=== PATIENT | male | born 1980 | race Caucasian/White ===

== ENCOUNTER 2021-08-16 05:25 | Emergency (ER) | payer BC, OTHER ==
[~2021-08-16] VITALS: Ht 182.9 cm; Wt 95.6 kg
[2021-08-16 08:06] LABS: BASO % 0.2 % (0.0-1.0); EOS % 0.1 % (0.0-3.0); HEMATOCRIT 47.7 % (42.0-52.0); HEMOGLOBIN 16.5 g/dl (13.5-17.5); LYMPH % 5.7 % (24.0-44.0); MEAN CORPUSCULAR HEMOGLOBIN 34.8 pg (27.0-33.0); MEAN CORPUSCULAR HGB CONC 34.6 g/dl (32.0-36.5); MEAN CORPUSCULAR VOLUME 100.6 fl (80.0-96.0); MONO % 9.3 % (2.0-8.0); NEUTROPHILS % 81.9 % (36.0-66.0); PLATELET COUNT, AUTOMATED 176 10^3/uL (150-450); RED BLOOD COUNT 4.74 10^6/uL (4.30-6.10)
[2021-08-16 08:08] LABS: AMORPHOUS SEDIMENT SMALL (NEGATIVE); APPEARANCE, URINE CLOUDY (CLEAR); BACTERIA, URINE AUTO NEGATIVE (NEGATIVE); BILIRUBIN, URINE AUTO NEGATIVE (NEGATIVE); BLOOD, URINE BLOOD NEGATIVE (NEGATIVE); COLOR, URINE YELLOW (YELLOW); GLUCOSE, URINE (UA) AUTO NEGATIVE (NEGATIVE); KETONE, URINE AUTO TRACE mg/dL (NEGATIVE); LEUKOCYTE ESTERASE, URINE AUTO NEGATIVE (NEGATIVE); MUCUS, URINE SMALL (NEGATIVE); NITRITE, URINE AUTO NEGATIVE (NEGATIVE); PROTEIN, URINE AUTO NEGATIVE (NEGATIVE); RBC, URINE AUTO 0 /HPF (0-3); SPECIFIC GRAVITY URINE AUTO 1.019 (1.002-1.035); SQUAMOUS EPITHELIAL CELL UR AU 0 /HPF (0-6); WBC, URINE AUTO 3 /HPF (0-3)
[2021-08-16 08:29] LABS: ALBUMIN 3.7 GM/DL (3.2-5.2); ALT/SGPT 55 U/L (12-78); BILIRUBIN,DIRECT 0.4 MG/DL (0.0-0.2); BILIRUBIN,TOTAL 1.9 MG/DL (0.2-1.0); BLOOD UREA NITROGEN 11 MG/DL (7-18); CALCIUM LEVEL 9.2 MG/DL (8.5-10.1); CARBON DIOXIDE LEVEL 29 MEQ/L (21-32); CHLORIDE LEVEL 111 MEQ/L (98-107); CREATININE FOR GFR 1.04 MG/DL (0.70-1.30); GLOMERULAR FILTRATION RATE > 60.0 (>60); GLUCOSE, FASTING 103 MG/DL (70-100); NT-PRO BNP 126 PG/ML (<125); POTASSIUM SERUM 3.9 MEQ/L (3.5-5.1); SODIUM LEVEL 146 MEQ/L (136-145); TOTAL PROTEIN 6.5 GM/DL (6.4-8.2)
[2021-08-16 08:40] LABS: MONO # 1.6 10^3/uL (0.0-0.8)
[2021-08-16] MEDS ORDERED: ISOVUE-370 76% 100ML VIAL As Ordered ONE (09:19)
[2021-08-16 11:01] VITALS: BP 162/80
[2021-08-28] MEDS ORDERED: LOSA50TA28 PO (18:00)
[2021-10-20] MEDS ORDERED: HYDR-4571 PO ×2 (09:58→16:11)
[2021-11-06] MEDS ORDERED: HYDR-3713 PO (15:08)
== END 2021-08-16 11:19 | disposition home or self-care (01) ==
LOC: M ED 05:25
DX: R22.43 Localized swelling, mass and lump, lower limb, bilateral (principal); D72.829 Elevated white blood cell count, unspecified
CPT/HCPCS: 71046; 74177; 80048; 80076; 81001; 83880; 85025; 99283; Q9967

== ENCOUNTER → 2021-08-23 | Outpatient (CLI) | payer BC ==
[~2021-08-23] MED LIST: AMLO1TAB25 PO; AMLODIPI PO; AZIT500T5 PO; CEFD300C41 PO; CETI10CH PO; CHLO125TA PO; DAPS10TA PO; DICL1GEL3 TOP; DILT1CAP46 PO; DOXY-443 PO; ELIQ5TAB PO; EPIP0.3I2 IM; FAMO20TA PO; HYDR-3713 PO; HYDR-3910 PO; HYDR-4571 PO; HYDR50TA70 PO; JANU100T14 PO; LEVO750T13 PO; LOSA50TA28 PO; METF10004 PO; METF500T13 PO; METO1TAB33 PO; MIRA1POW3 PO; NORV5TAB PO; PANT40TA29 PO; POTA10CA32 PO; POTA10TA67 PO; PRED20TA PO; RA M10TA PO; SPIR-10 PO; TRIA1CR80 TOP; TRUL10IN SC
[2021-08-23 10:59] LABS: APPEARANCE, URINE CLEAR (CLEAR); BACTERIA, URINE AUTO NEGATIVE (NEGATIVE); BILIRUBIN, URINE AUTO NEGATIVE (NEGATIVE); BLOOD, URINE BLOOD NEGATIVE (NEGATIVE); COLOR, URINE YELLOW (YELLOW); GLUCOSE, URINE (UA) AUTO NEGATIVE (NEGATIVE); KETONE, URINE AUTO NEGATIVE (NEGATIVE); LEUKOCYTE ESTERASE, URINE AUTO NEGATIVE (NEGATIVE); MUCUS, URINE SMALL (NEGATIVE); NITRITE, URINE AUTO NEGATIVE (NEGATIVE); PROTEIN, URINE AUTO NEGATIVE (NEGATIVE); RBC, URINE AUTO 0 /HPF (0-3); SPECIFIC GRAVITY URINE AUTO 1.012 (1.002-1.035); SQUAMOUS EPITHELIAL CELL UR AU 0 /HPF (0-6); WBC, URINE AUTO 1 /HPF (0-3)
[2021-08-23 11:00] LABS: BASO # 0.1 10^3/uL (0.0-0.2); BASO % 0.6 % (0.0-1.0); EOS % 0.1 % (0.0-3.0); HEMATOCRIT 43.8 % (42.0-52.0); HEMOGLOBIN 15.3 g/dl (13.5-17.5); LYMPH # 0.8 10^3/uL (1.5-5.0); MEAN CORPUSCULAR HEMOGLOBIN 34.9 pg (27.0-33.0); MEAN CORPUSCULAR HGB CONC 34.9 g/dl (32.0-36.5); MEAN CORPUSCULAR VOLUME 99.8 fl (80.0-96.0); MONO % 10.1 % (2.0-8.0); NEUTROPHILS # 7.6 10^3/uL (1.5-8.5); NEUTROPHILS % 76.2 % (36.0-66.0); PLATELET COUNT, AUTOMATED 162 10^3/uL (150-450); RED BLOOD COUNT 4.39 10^6/uL (4.30-6.10)
[2021-08-23 11:10] LABS: INR 0.88; PROTHROMBIN TIME 12.3 SECONDS (12.7-14.5)
[2021-08-23 11:31] LABS: ALBUMIN 3.3 GM/DL (3.2-5.2); ALT/SGPT 49 U/L (12-78); BILIRUBIN,TOTAL 1.4 MG/DL (0.2-1.0); BLOOD UREA NITROGEN 13 MG/DL (7-18); CALCIUM LEVEL 8.7 MG/DL (8.5-10.1); CARBON DIOXIDE LEVEL 31 MEQ/L (21-32); CHLORIDE LEVEL 105 MEQ/L (98-107); CREATININE FOR GFR 0.94 MG/DL (0.70-1.30); GLOMERULAR FILTRATION RATE > 60.0 (>60); GLUCOSE, FASTING 136 MG/DL (70-100); LIPASE 122 U/L (73-393); POTASSIUM SERUM 3.4 MEQ/L (3.5-5.1); SODIUM LEVEL 145 MEQ/L (136-145); TOTAL PROTEIN 5.8 GM/DL (6.4-8.2)
[2021-08-23 11:53] LABS: HEPATITIS B SURFACE ANTIGEN NEGATIVE (NEGATIVE)
[2021-08-23 12:19] LABS: HEPATITIS C VIRUS ABY INDEX 0.1 INDEX (<0.8)
[2021-08-23 12:20] LABS: HEPATITIS B CORE ANTIBODY IGM NEGATIVE (NEGATIVE)
== END ==
LOC: M LAB 09:49
PROVIDERS: ATTEND Nurse Practitioner Family
DX: E83.31 Familial hypophosphatemia (principal)

== ENCOUNTER 2021-08-27 19:50 | Emergency (ER) | payer BC ==
[~2021-08-27] VITALS: Ht 182.9 cm; Wt 97.5 kg
[2021-08-27] MEDS ORDERED: DICL1GEL3 TOP (19:59)
--- OUTSIDE RECORDS SUMMARY | 2021-08-27 20:08 | CCD ---
Author Author [facility] Organization [facility] Address Unknown Phone Unavailable Support Name Relationship Address Phone GIOVANNA Next Of Kin [address] [place] [address] UE Next Of Kin Unknown Unavailable SHRUTHI AWAD Next Of Kin [address] [place] [address] ST Next Of Kin Unknown Unavailable JEZ MA Next Of Kin [address] [place] [address] [place] [address] Unavailable NONE, PT PER Next Of Kin - - -, [place] - Unavailable Danielle MA Next Of Kin [address] [place] [address] SHRUTHI AWAD ECON [address] [place] [address] Unavailable Re-disclosure Warning The records that you are about to access may contain information from federally-assisted alcohol or drug abuse programs. If such information is present, then the following federally mandated warning applies: This information has been disclosed to you from records protected by federal confidentiality rules (42 CFR part 2). The federal rules prohibit you from making any further disclosure of this information unless further disclosure is expressly permitted by the written consent of the person to whom it pertains or as otherwise permitted by 42 CFR part 2. A general authorization for the release of medical or other information is NOT sufficient for this purpose. The Federal rules restrict any use of the information to criminally investigate or prosecute any alcohol or drug abuse patient.The records that you are about to access may contain highly sensitive health information, the redisclosure of which is protected by Article 27-F of the [facility] Public Health law. If you continue you may have access to information: Regarding HIV / AIDS; Provided by facilities licensed or operated by the [facility] Office of Mental Health; or Provided by the [facility] Office for People With Developmental Disabilities. If such information is present, then the following [facility] mandated warning applies: This information has been disclosed to you from confidential records which are protected by state law. State law prohibits you from making any further disclosure of this information without the specific written consent of the person to whom it pertains, or as otherwise permitted by law. Any unauthorized further disclosure in violation of state law may result in a fine or mcc sentence or both. A general authorization for the release of medical or other information is NOT sufficient authorization for further disc losure. Immunizations Vaccine Date Status Description Data Source(s) COVID-19 VACC, MRNA(PFIZER)/PF 05/20/2021 12:00:00 AM EDT completed [facility] COVID-19 VACCINE Pfizer 05/20/2021 12:00:00 AM EDT completed [facility] Vaccine Series Complete: YESThis Data wa s Submitted to [facility] Via [employer]. COVID-19 VACC, MRNA(PFIZER)/PF 04/29/2021 12:00:00 AM EDT completed [facility] COVID-19 VACCINE Pfizer 04/29/2021 12:00:00 AM EDT completed [facility] Vaccine Series Complete: NOThis Data was Submitted to [facility] [employer]. Medications Medication Brand Name Start Date Product Form Dose Route Admi nistrative Instructions Pharmacy Instructions Status Indications Reaction Description Data Source(s) Cephalexin 500 MG Oral Capsule CEPHALEXIN 05/26/2021 12:00:00 AM EDT capsule 28 TAKE ONE CAPSULE BY MOUTH EVERY 6 HOURS TAKE ONE CAPSU LE BY MOUTH EVERY 6 HOURS SOLD: 05/26/2021 [facility] Insurance Providers Payer name Policy type / Coverage type Policy ID Covered democrat ID Covered democrat's relationship to gustafson Policy [place] Plan Information [employer] [place] 306/806 [id number] SP [id number] [place] [place] [id number] SP [id number] [employer] 306/806 [id number] SP [id number] HMO BLUE [id number] SP [id number] 'S ADMINISTRATION [id number] SP [id number] HMO BLUE [id number] Problems, Conditions, and Diagnoses No Information Surgeries/Procedures No Information Results ID Date Data Source [id number] 03/18/2021 12:00:00 AM EDT [facility] Name Value Range Interpretation Code Description Data Sudha rce(s) Supporting Document(s) [facility]2 [facility] This lab was reported by [facility]. ID Date Data Source [id number] 10/19/2020 12:00:00 AM EST [facility] Name Value Range Interpretation Code Description Data Sudha rce(s) Supporting Document(s) SARS-CoV2 Rapid Antigen Negative [facility] and reported by [facility]. Procedure Social History No Information
[2021-08-27] MEDS ORDERED: diphenhydrAMINE 50MG/ML VIAL (J1200) IV STA (21:06)
[2021-08-27] MEDS ORDERED: FAMOTIDINE INJ 20MG/2ML VIAL (S0028 PER 1) IVP ONE (21:10)
[2021-08-27] MEDS ORDERED: methylPREDNISolone 125MG 2ML VIAL IV ONE (21:10)
[2021-08-27] MEDS ORDERED: ALBUTEROL SULFATE 2.5 MG/0.5 ML INH NEB SOLN NEB ONE (21:25)
--- OUTSIDE RECORDS SUMMARY | 2021-08-27 21:44 | CCD ---
Author Author [facility] Organization [facility] Address Unknown Phone Unavailable Support Name Relationship Address Phone GIOVANNA Next Of Kin [address] [place] [address] UE Next Of Kin Unknown Unavailable SHRUTHI AWAD Next Of Kin [address] [place] [address] ST Next Of Kin Unknown Unavailable JEZ MA Next Of Kin [address] [place] [address] [place] [address] Unavailable NONE, PT PER Next Of Kin - - -, [place] - Unavailable Danielle MA Next Of Kin [address] [place] [address] SHRUTHI AWAD ECON [address] [place] [address] Unavailable Re-disclosure Warning The records that you [...] is protected by Article 27-F of the [facility] Public Health law. If you continue you may have access to information: Regarding HIV / AIDS; Provided by facilities licensed or operated by the [facility] Office of Mental Health; or Provided by the [facility] Office for People With Developmental Disabilities. If such information is present, then the following [facility] mandated warning applies: This information has been [...] law may result in a fine or retirement sentence or both. A general authorization for the release of medical or other information is NOT sufficient authorization for further disc losure. Immunizations Vaccine Date Status Description Data Source(s) COVID-19 VACC, MRNA(PFIZER)/PF 05/20/2021 12:00:00 AM EDT completed [facility] COVID-19 VACCINE Pfizer 05/20/2021 12:00:00 AM EDT completed [facility] Vaccine Series Complete: YESThis Data wa s Submitted to [facility] [employer]. COVID-19 VACC, MRNA(PFIZER)/PF 04/29/2021 12:00:00 AM EDT completed [facility] COVID-19 VACCINE Pfizer 04/29/2021 12:00:00 AM EDT completed [facility] Vaccine Series Complete: NOThis Data was Submitted to [facility] [employer]. Medications Medication Brand Name Start Date Product [...] type / Coverage type Policy ID Covered republican ID Covered republican's relationship to gustafson Policy [place] Plan Information [employer] [place] 306/806 [id number] SP [id number] [employer] [place] CC[place] [id number] SP [id number] [employer] [place] 306/806 [id number] SP [id number] HMO BLUE [id number] SP [id number] 'S ADMINISTRATION [id number] SP [id number] HMO BLUE [id number] Problems, Conditions, and Diagnoses No Information Surgeries/Procedures No Information Results ID Date Data Source [id number] 03/18/2021 12:00:00 AM EDT [facility] Name Value Range Interpretation Code Description Data Sudha rce(s) Supporting Document(s) [facility] This lab was reported by [facility]. ID Date Data Source [id number] 10/19/2020 12:00:00 AM EST [facility] Name Value Range Interpretation Code Description Data Sudha rce(s) Supporting Document(s) SARS-CoV2 Rapid [facility]igen [facility] and reported by [facility]. Procedure Social History No Information
[2021-08-27] MEDS ORDERED: PRED20TA PO (22:28)
[2021-08-27] MEDS ORDERED: FAMO20TA PO (22:28)
[2021-08-27] MEDS ORDERED: CETI10CH PO (22:28)
[2021-08-27] MEDS ORDERED: EPIP0.3I2 IM (22:28)
[2021-08-27] MEDS ORDERED: NORV5TAB PO (22:32)
[2021-08-27 23:00] VITALS: BP 139/81
[2021-08-28] MEDS ORDERED: AMLODIPI PO (16:20)
[2021-08-28] MEDS ORDERED: LOSA50TA88 PO (18:00)
[2021-08-28] MEDS ORDERED: CHLO125TA PO (18:00)
== END 2021-08-27 23:06 | disposition home or self-care (01) ==
LOC: M ED 19:50
DX: T78.40XA Allergy, unspecified, initial encounter (principal); R21 Rash and other nonspecific skin eruption; R00.2 Palpitations; I10 Essential (primary) hypertension; Z79.899 Other long term (current) drug therapy
CPT/HCPCS: 94640; 96374; 96375; 99284; J1200; J2930

== ENCOUNTER 2021-08-28 14:30 | Emergency (ER) | payer BC ==
[~2021-08-28] VITALS: Ht 182.9 cm; Wt 97.2 kg
[~2021-08-28 14:30] MED LIST changes: -AMLO1TAB25 PO; -AMLODIPI PO; -AZIT500T5 PO; -CEFD300C41 PO; -CHLO125TA PO; -DAPS10TA PO; -DILT1CAP46 PO; -DOXY-443 PO; -ELIQ5TAB PO; -HYDR-3713 PO; -HYDR-3910 PO; -HYDR-4571 PO; -HYDR50TA70 PO; -JANU100T14 PO; -LEVO750T13 PO; -LOSA50TA28 PO; -METF10004 PO; -METF500T13 PO; -METO1TAB33 PO; -MIRA1POW3 PO; -PANT40TA29 PO; -POTA10CA32 PO; -POTA10TA67 PO; -RA M10TA PO; -SPIR-10 PO; -TRIA1CR80 TOP; -TRUL10IN SC
--- OUTSIDE RECORDS SUMMARY | 2021-08-28 16:11 | CCD ---
Author Author [facility] Organization [facility] Address Unknown Phone Unavailable Support Name Relationship Address Phone GIOVANNA Next Of Kin [address] [place] [address] UE Next Of Kin Unknown Unavailable SHRUTHI AWAD Next Of Kin [address] [place] [address] ST Next Of Kin Unknown Unavailable JEZ MA Next Of Kin [address] [place] [address] [place] [address] Unavailable NONE, PT PER Next Of Kin - - -, [place] - Unavailable Danielle MA Next Of Kin [address] [place] [address] SHRUTHI AWAD ECON [address] [place] [address] Unavailable Re-disclosure Warning The records that you [...] is protected by Article 27-F of the [facility] Public Health law. If you continue you may have access to information: Regarding HIV / AIDS; Provided by facilities licensed or operated by the [facility] Office of Mental Health; or Provided by the [facility] Office for People With Developmental Disabilities. If such information is present, then the following [facility] mandated warning applies: This information has [...] law may result in a fine or chcf sentence or both. A general authorization for the release of medical or other information is NOT sufficient authorization for further disc losure. Immunizations Vaccine Date Status Description Data Source(s) COVID-19 VACC, MRNA(PFIZER)/PF 05/20/2021 12:00:00 AM EDT completed [facility] COVID-19 VACCINE Pfizer 05/20/2021 12:00:00 AM EDT completed [facility] Vaccine Series Complete: YESThis Data wa s Submitted to [facility] [employer]. COVID-19 VACC, MRNA(PFIZER)/PF 04/29/2021 12:00:00 AM EDT completed [facility] COVID-19 VACCINE Pfizer 04/29/2021 12:00:00 AM EDT completed [facility] Vaccine Series Complete: NOThis Data was Submitted to [facility] [employer]. Medications Medication Brand Name Start Date Product [...] Plan Information [employer] [place] 306/806 [id number] SP [id number] [employer] [place] CCN [id number] SP [id number] [employer] [place] 306/806 [id number] SP [id number] HMO BLUE [id number] SP [id number] 'S ADMINISTRATION [id number] SP [id number] HMO BLUE [id number] Problems, Conditions, and Diagnoses No Information Surgeries/Procedures No Information Results ID Date Data Source [id number] 03/18/2021 12:00:00 AM EDT [facility] Name Value Range Interpretation Code Description Data Sudha rce(s) Supporting Document(s) [facility]2 [facility] This lab was reported by [facility]. ID Date Data Source [id number] 10/19/2020 12:00:00 AM EST [facility] Name Value Range Interpretation Code Description Data Sudha rce(s) Supporting Document(s) SARS-CoV2 Rapid [facility]igen [facility] and reported by [facility]. Procedure Social History No Information
[2021-08-28] MEDS ORDERED: AMLODIPI PO (16:20)
[2021-08-28 17:36] LABS: ETHYL ALCOHOL (ETHANOL) < 0.003 % (0.000-0.010); NT-PRO BNP 218 PG/ML (<125); THYROID STIMULATING HORMONE 0.334 uIU/ML (0.358-3.740)
[2021-08-28] MEDS ORDERED: CHLORTHALIDONE 12.5MG PER 1/2 TABLET PO ONE (17:55)
[2021-08-28] MEDS ORDERED: LOSARTAN 50MG TABLET PO ONE (17:55)
[2021-08-28] MEDS ORDERED: LOSA50TA88 PO (18:00)
[2021-08-28] MEDS ORDERED: CHLO125TA PO (18:00)
[2021-08-28 18:16] LABS: FREE T4 0.55 NG/DL (0.76-1.46)
[2021-08-28] MEDS ORDERED: CHLORTHALIDONE 25 MG TAB PO ONE (18:25)
[2021-08-28] MEDS ORDERED: PILL CUTTER 1 EACH XX PRN (18:25)
[2021-08-28 18:30] VITALS: BP 174/97
[2021-08-28 18:40] VITALS: BP 174/97
--- NOTE | 2021-08-30 10:17 | ECGEPIP ---
[facility] - ED Test Date: 2021-08-28 Pat Name: CHARLOTTE MA Department: Room: - Gender: Male Emergency Technician: CORINA : 1980 Requested By: Jacob Lawson Order Number: [id number] Reading MD: Papo Menendez Measurements Intervals [place] Rate: 57 P: 26 WV: 124 QRS: 40 QRSD: 92 T: 18 QT: 384 QTc: 373 Interpretive Statements Sinus bradycardia Comparison tracing not on file Baseline artifact Electronically Signed on 08-30-2021 10:17:32 EST by Papo Menendez
== END 2021-08-28 18:54 | disposition home or self-care (01) ==
LOC: M ED 14:30 → EDBD 14:30 → M ED 18:54
DX: I10 Essential (primary) hypertension (principal); R60.9 Edema, unspecified; Z79.899 Other long term (current) drug therapy

== ENCOUNTER 2021-10-14 10:52 | Inpatient (IN) | payer BC, OTHER ==
[~2021-10-14] VITALS: Ht 182.9 cm; Wt 87.1 kg
[~2021-10-14 10:52] MED LIST changes: +AMLODIPI PO; +CHLO125TA PO; +LOSA50TA28 PO
[2021-10-14] MEDS ORDERED: dexameTHASONE 20MG/5ML VIAL (J1100 PER 1MG) IV ONE (11:05)
[2021-10-14] MEDS: COMBIVENT RESPIMAT 100-20MCG INHALER 4GM INH SCH ×3 (11:10→11:55)
[2021-10-14 11:25] LABS: HEMATOCRIT 26.9 % (42.0-52.0); HEMOGLOBIN 9.1 g/dl (13.5-17.5); MEAN CORPUSCULAR HEMOGLOBIN 35.4 pg (27.0-33.0); MEAN CORPUSCULAR HGB CONC 33.8 g/dl (32.0-36.5); MEAN CORPUSCULAR VOLUME 104.7 fl (80.0-96.0); PLATELET COUNT, AUTOMATED 160 10^3/uL (150-450); RED BLOOD COUNT 2.57 10^6/uL (4.30-6.10); WHITE BLOOD COUNT 9.9 10^3/uL (4.0-10.0)
[2021-10-14] MEDS ORDERED: METF10004 PO (11:28)
[2021-10-14] MEDS ORDERED: PANT40TA29 PO (11:28)
[2021-10-14] MEDS ORDERED: METO1TAB33 PO (11:28)
[2021-10-14] MEDS ORDERED: POTA10CA32 PO (11:28)
[2021-10-14] MEDS ORDERED: SPIR-10 PO (11:28)
[2021-10-14] MEDS ORDERED: DILT1CAP46 PO (11:28)
[2021-10-14] MEDS ORDERED: METF500T13 PO (11:28)
[2021-10-14] MEDS ORDERED: HYDR50TA70 PO (11:28)
[2021-10-14] MEDS ORDERED: TRUL10IN SC (11:28)
[2021-10-14] MEDS ORDERED: HYDR-3910 PO (11:28)
[2021-10-14] MEDS ORDERED: DOXY-443 PO (11:28)
[2021-10-14] MEDS ORDERED: AMLO1TAB25 PO (11:28)
[2021-10-14] MEDS ORDERED: DAPS10TA PO (11:28)
[2021-10-14] MEDS ORDERED: JANU100T14 PO (11:28)
[2021-10-14 11:37] LABS: INR 1.06; PROTHROMBIN TIME 14.2 SECONDS (12.7-14.5)
[2021-10-14 11:38] LABS: PARTIAL THROMBOPLASTIN TIME 39.3 SECONDS (25.9-37.0)
[2021-10-14] MEDS ORDERED: NS 1,000 ML IV ONE (11:45)
[2021-10-14] MEDS ORDERED: cefTRIAXone SOD 2 GM in D5W MINI-BAG PLUS 50 ML IV ONE (12:00)
[2021-10-14 12:02] LABS: ATYPICAL LYMPH 2 % (0-5); CK-MB VALUE MASS < 1.0 NG/ML (<3.6); CPK CREATINE PHOSPHOKINASE 23 U/L (39-308); LYMPHOCYTES 20 % (16-44); MB/CK RELATIVE INDEX 4.35 (< OR =4); METAMYELOCYTES 3 % (0-0); MONOCYTES 5 % (0-5); MYELOCYTES 1 % (0-0); NEUTROPHILS 65 % (28-66); PLASMA CELL 1 % (0-0)
[2021-10-14 12:04] LABS: PLATELET ESTIMATE NORMAL (NORMAL)
[2021-10-14 12:05] LABS: ANISOCYTOSIS 1+; PLATELET CLUMPS SMALL AMT; POLYCHROMASIA 1+
[2021-10-14 12:09] LABS: ALBUMIN 2.3 GM/DL (3.2-5.2); ALT/SGPT 49 U/L (12-78); BILIRUBIN,DIRECT 0.2 MG/DL (0.0-0.2); BILIRUBIN,TOTAL 0.8 MG/DL (0.2-1.0); BLOOD UREA NITROGEN 18 MG/DL (7-18); CALCIUM LEVEL 8.4 MG/DL (8.5-10.1); CARBON DIOXIDE LEVEL 22 MEQ/L (21-32); CHLORIDE LEVEL 105 MEQ/L (98-107); CREATININE FOR GFR 1.17 MG/DL (0.70-1.30); GLOMERULAR FILTRATION RATE > 60.0 (>60); GLUCOSE, FASTING 241 MG/DL (70-100); LDH LACTATE DEHYDROGENASE 510 U/L (87-241); MAGNESIUM LEVEL 1.9 MG/DL (1.8-2.4); NT-PRO BNP 372 PG/ML (<125); POTASSIUM SERUM 4.6 MEQ/L (3.5-5.1); SODIUM LEVEL 137 MEQ/L (136-145); THYROXINE (T4) 6.1 UG/DL (4.5-12.0)
[2021-10-14] MEDS ORDERED: TRIA1CR80 TOP (12:14)
[2021-10-14] MEDS ORDERED: RA M10TA PO (12:14)
[2021-10-14] MEDS ORDERED: HOME MED LIST COMPLETE! XX SCH (12:15)
[2021-10-14] MEDS ORDERED: NS 1,490 ML in IV 1 EA IV ONE (12:20)
[2021-10-14] MEDS ORDERED: LevoFLOXacin IV 750 MG in IV 1 EA IV ONE (12:30)
[2021-10-14 12:44] LABS: AMYLASE 46 U/L (25-115)
[2021-10-14] MEDS ORDERED: ACETAMINOPHEN TAB 650MG DOSE (2X325MG) PO PRN (13:15)
[2021-10-14] MEDS ORDERED: hydrOXYzine 50 MG TAB PO PRN (13:15)
[2021-10-14] MEDS ORDERED: GLUCAGON INJ 1MG VIAL SC PRN (13:15)
[2021-10-14] MEDS ORDERED: DEXTROSE 50% 50 ML SYRINGE IV PRN (13:15)
[2021-10-14] MEDS ORDERED: GLUCOSE 4GM CHEW TABLET PO PRN (13:15)
[2021-10-14] MEDS ORDERED: ISOVUE-370 76% 100ML VIAL As Ordered ONE (13:19)
[2021-10-14 16:13] VITALS: BP 105/66
[2021-10-14 17:00] VITALS: O2SAT 95
[2021-10-14] MEDS: HumaLOG INSULIN (NovoLOG) PER UNIT SC SCH ×2 (17:19→20:51)
[2021-10-14 18:00] VITALS: O2SAT 97
[2021-10-14 20:00] VITALS: BP 109/71
[2021-10-14] MEDS: METOPROLOL SUCC (TopROL XL) 100MG *XL* TAB PO SCH (20:31)
[2021-10-15] VITALS: BP 120/73
[2021-10-15 04:00] VITALS: BP 117/75
[2021-10-15 07:06] LABS: HEMATOCRIT 24.5 % (42.0-52.0); MEAN CORPUSCULAR HEMOGLOBIN 34.8 pg (27.0-33.0); MEAN CORPUSCULAR HGB CONC 32.7 g/dl (32.0-36.5); MEAN CORPUSCULAR VOLUME 106.5 fl (80.0-96.0); PLATELET COUNT, AUTOMATED 158 10^3/uL (150-450); WHITE BLOOD COUNT 8.5 10^3/uL (4.0-10.0)
[2021-10-15 07:32] LABS: ALBUMIN 2.1 GM/DL (3.2-5.2); ALT/SGPT 42 U/L (12-78); BILIRUBIN,TOTAL 0.3 MG/DL (0.2-1.0); BLOOD UREA NITROGEN 18 MG/DL (7-18); CALCIUM LEVEL 9.1 MG/DL (8.5-10.1); CARBON DIOXIDE LEVEL 24 MEQ/L (21-32); CHLORIDE LEVEL 111 MEQ/L (98-107); CREATININE FOR GFR 0.85 MG/DL (0.70-1.30); GLOMERULAR FILTRATION RATE > 60.0 (>60); GLUCOSE, FASTING 255 MG/DL (70-100); MAGNESIUM LEVEL 2.4 MG/DL (1.8-2.4); POTASSIUM SERUM 4.9 MEQ/L (3.5-5.1); SODIUM LEVEL 140 MEQ/L (136-145); TOTAL PROTEIN 6.6 GM/DL (6.4-8.2)
[2021-10-15 07:48] LABS: BASOPHILS 1 % (0-1); LYMPHOCYTES 10 % (16-44); METAMYELOCYTES 2 % (0-0); MONOCYTES 3 % (0-5); MYELOCYTES 1 % (0-0); NEUTROPHILS 80 % (28-66); PLATELET ESTIMATE NORMAL (NORMAL)
[2021-10-15 07:49] LABS: ANISOCYTOSIS 1+; PLATELET CLUMPS SMALL AMT; POLYCHROMASIA 1+
[2021-10-15 07:52] LABS: SPHEROCYTES 1+
[2021-10-15 07:53] LABS: SCHISTOCYTES 1+
[2021-10-15 08:14] VITALS: BP 123/78
[2021-10-15] MEDS: HumaLOG INSULIN (NovoLOG) PER UNIT SC SCH ×4 (08:39→20:19)
[2021-10-15] MEDS: diltiaZEM **CD** 180 MG CAP PO SCH (08:40)
[2021-10-15] MEDS: POTASSIUM CHLORIDE 10MEQ SR TABLET PO SCH (08:40)
[2021-10-15] MEDS: PANTOPRAZOLE 40MG TAB (PROTONIX) PO SCH (08:41)
[2021-10-15] MEDS: TRIAMCINOLONE ACET 0.1% CREAM 80 GM TOP SCH (08:41)
[2021-10-15] MEDS: DAPSONE 100 MG TAB PO SCH (08:42)
[2021-10-15 12:00] VITALS: BP 126/71
[2021-10-15] MEDS: LevoFLOXacin IV 750 MG in IV 1 EA IV SCH (13:00)
[2021-10-15 16:00] VITALS: BP 137/85
[2021-10-15 20:00] VITALS: BP 118/78
[2021-10-15] MEDS: METOPROLOL SUCC (TopROL XL) 100MG *XL* TAB PO SCH (20:18)
[2021-10-16] VITALS: BP 113/76
[2021-10-16 04:00] VITALS: BP 109/72
[2021-10-16 06:13] LABS: HEMATOCRIT 23.6 % (42.0-52.0); HEMOGLOBIN 7.4 g/dl (13.5-17.5); MEAN CORPUSCULAR HEMOGLOBIN 34.3 pg (27.0-33.0); MEAN CORPUSCULAR HGB CONC 31.4 g/dl (32.0-36.5); MEAN CORPUSCULAR VOLUME 109.3 fl (80.0-96.0); PLATELET COUNT, AUTOMATED 188 10^3/uL (150-450); RED BLOOD COUNT 2.16 10^6/uL (4.30-6.10)
[2021-10-16 06:41] LABS: ATYPICAL LYMPH 1 % (0-5); BASOPHILS 1 % (0-1); EOSINOPHILS 1 % (0-3); LYMPHOCYTES 13 % (16-44); MONOCYTES 1 % (0-5); NEUTROPHILS 81 % (28-66)
[2021-10-16 06:42] LABS: ALT/SGPT 47 U/L (12-78); ANISOCYTOSIS 2+; BILIRUBIN,TOTAL 0.2 MG/DL (0.2-1.0); BLOOD UREA NITROGEN 24 MG/DL (7-18); CALCIUM LEVEL 8.5 MG/DL (8.5-10.1); CARBON DIOXIDE LEVEL 25 MEQ/L (21-32); CHLORIDE LEVEL 111 MEQ/L (98-107); CREATININE FOR GFR 0.84 MG/DL (0.70-1.30); GLOMERULAR FILTRATION RATE > 60.0 (>60); GLUCOSE, FASTING 151 MG/DL (70-100); MAGNESIUM LEVEL 2.2 MG/DL (1.8-2.4); PLATELET ESTIMATE NORMAL (NORMAL); POLYCHROMASIA 2+; POTASSIUM SERUM 4.4 MEQ/L (3.5-5.1); SODIUM LEVEL 141 MEQ/L (136-145); TOTAL PROTEIN 5.8 GM/DL (6.4-8.2)
[2021-10-16 07:25] VITALS: BP 116/81
[2021-10-16] MEDS: POTASSIUM CHLORIDE 10MEQ SR TABLET PO SCH (08:50)
[2021-10-16] MEDS: DAPSONE 100 MG TAB PO SCH (08:52)
[2021-10-16] MEDS: PANTOPRAZOLE 40MG TAB (PROTONIX) PO SCH (08:52)
[2021-10-16] MEDS: diltiaZEM **CD** 180 MG CAP PO SCH (08:52)
[2021-10-16] MEDS: TRIAMCINOLONE ACET 0.1% CREAM 80 GM TOP SCH (08:53)
[2021-10-16] MEDS: HumaLOG INSULIN (NovoLOG) PER UNIT SC SCH ×4 (08:53→21:00)
[2021-10-16] MEDS: LevoFLOXacin IV 750 MG in IV 1 EA IV SCH (12:19)
[2021-10-16 13:05] VITALS: BP 110/64
[2021-10-16 16:20] VITALS: BP 11/66
[2021-10-16 20:00] VITALS: BP 119/77
[2021-10-16] MEDS: METOPROLOL SUCC (TopROL XL) 100MG *XL* TAB PO SCH (21:00)
[2021-10-17] VITALS: BP 118/74
[2021-10-17 03:29] VITALS: BP 112/69
[2021-10-17 05:36] LABS: HEMATOCRIT 26.3 % (42.0-52.0); HEMOGLOBIN 8.3 g/dl (13.5-17.5); MEAN CORPUSCULAR HEMOGLOBIN 34.4 pg (27.0-33.0); MEAN CORPUSCULAR HGB CONC 31.6 g/dl (32.0-36.5); MEAN CORPUSCULAR VOLUME 109.1 fl (80.0-96.0); PLATELET COUNT, AUTOMATED 245 10^3/uL (150-450); RED BLOOD COUNT 2.41 10^6/uL (4.30-6.10); WHITE BLOOD COUNT 7.9 10^3/uL (4.0-10.0)
[2021-10-17 06:07] LABS: ALBUMIN 2.1 GM/DL (3.2-5.2); ALT/SGPT 49 U/L (12-78); BILIRUBIN,TOTAL 0.3 MG/DL (0.2-1.0); BLOOD UREA NITROGEN 25 MG/DL (7-18); CALCIUM LEVEL 8.6 MG/DL (8.5-10.1); CARBON DIOXIDE LEVEL 26 MEQ/L (21-32); CHLORIDE LEVEL 113 MEQ/L (98-107); CREATININE FOR GFR 0.85 MG/DL (0.70-1.30); GLOMERULAR FILTRATION RATE > 60.0 (>60); GLUCOSE, FASTING 134 MG/DL (70-100); MAGNESIUM LEVEL 2.3 MG/DL (1.8-2.4); POTASSIUM SERUM 4.2 MEQ/L (3.5-5.1); SODIUM LEVEL 145 MEQ/L (136-145)
[2021-10-17 06:11] LABS: EOSINOPHILS 1 % (0-3); LYMPHOCYTES 14 % (16-44); METAMYELOCYTES 4 % (0-0); MONOCYTES 7 % (0-5); MYELOCYTES 2 % (0-0); NEUTROPHILS 65 % (28-66)
[2021-10-17 06:12] LABS: ANISOCYTOSIS 2+; PLATELET ESTIMATE NORMAL (NORMAL)
[2021-10-17 08:17] VITALS: BP 119/83
[2021-10-17] MEDS: HumaLOG INSULIN (NovoLOG) PER UNIT SC SCH ×4 (08:40→20:12)
[2021-10-17] MEDS: POTASSIUM CHLORIDE 10MEQ SR TABLET PO SCH (08:41)
[2021-10-17] MEDS: PANTOPRAZOLE 40MG TAB (PROTONIX) PO SCH (08:42)
[2021-10-17] MEDS: DAPSONE 100 MG TAB PO SCH (08:42)
[2021-10-17] MEDS: diltiaZEM **CD** 180 MG CAP PO SCH (08:43)
[2021-10-17] MEDS: TRIAMCINOLONE ACET 0.1% CREAM 80 GM TOP SCH (08:44)
[2021-10-17] MEDS ORDERED: LEVO750T13 PO (09:14)
[2021-10-17] MEDS: LevoFLOXacin IV 750 MG in IV 1 EA IV SCH (12:38)
[2021-10-17 13:15] VITALS: BP 123/69
[2021-10-17] MEDS: METOPROLOL SUCC (TopROL XL) 100MG *XL* TAB PO SCH (20:09)
[2021-10-18] MEDS: HumaLOG INSULIN (NovoLOG) PER UNIT SC SCH (07:30)
[2021-10-18] MEDS: DAPSONE 100 MG TAB PO SCH (08:18)
[2021-10-18 08:19] VITALS: BP 133/75
[2021-10-18] MEDS: diltiaZEM **CD** 180 MG CAP PO SCH (08:19)
[2021-10-18] MEDS: PANTOPRAZOLE 40MG TAB (PROTONIX) PO SCH (08:19)
[2021-10-18] MEDS: POTASSIUM CHLORIDE 10MEQ SR TABLET PO SCH (08:19)
[2021-10-18 08:38] VITALS: BP 127/70
[2021-10-18 08:55] VITALS: BP 115/72
[2021-10-20] MEDS ORDERED: HYDR-4571 PO ×2 (09:58→16:11)
== END 2021-10-18 12:28 | disposition home health service (06) | DRG 193 ==
LOC: EDBD 10:52 → M ED 10:52 → M ED INP 13:14 → ENRESERV 14:40 → M PCU 16:13
PROVIDERS: ADMIT Family Medicine; ATTEND Internal Medicine
DX: J18.9 Pneumonia, unspecified organism (principal); J96.01 Acute respiratory failure with hypoxia; E24.9 Cushing's syndrome, unspecified; I10 Essential (primary) hypertension; E11.9 Type 2 diabetes mellitus without complications; K21.9 Gastro-esophageal reflux disease without esophagitis; D64.9 Anemia, unspecified; Z79.899 Other long term (current) drug therapy; Z87.891 Personal history of nicotine dependence

== ENCOUNTER 2021-10-24 13:43 | Inpatient (IN) | payer OTHER ==
[~2021-10-24] VITALS: Ht 182.9 cm; Wt 84.0 kg
[~2021-10-24 13:43] MED LIST changes: -HYDR-3713 PO; -POTA10TA67 PO
[2021-10-24 15:06] LABS: HEMATOCRIT 29.2 % (42.0-52.0); HEMOGLOBIN 8.9 g/dl (13.5-17.5); MEAN CORPUSCULAR HEMOGLOBIN 32.7 pg (27.0-33.0); MEAN CORPUSCULAR HGB CONC 30.5 g/dl (32.0-36.5); MEAN CORPUSCULAR VOLUME 107.4 fl (80.0-96.0); PLATELET COUNT, AUTOMATED 630 10^3/uL (150-450); RED BLOOD COUNT 2.72 10^6/uL (4.30-6.10); WHITE BLOOD COUNT 12.2 10^3/uL (4.0-10.0)
[2021-10-24 15:24] LABS: CK-MB VALUE MASS < 1.0 NG/ML (<3.6); CPK CREATINE PHOSPHOKINASE 29 U/L (39-308); MB/CK RELATIVE INDEX 3.45 (< OR =4)
[2021-10-24 15:30] LABS: ATYPICAL LYMPH 2 % (0-5); LYMPHOCYTES 11 % (16-44); METAMYELOCYTES 1 % (0-0); MONOCYTES 15 % (0-5); MYELOCYTES 8 % (0-0); NEUTROPHILS 56 % (28-66); PROMYELOCYTES 1 % (0-0)
[2021-10-24 15:36] LABS: PLATELET ESTIMATE INCREASED (NORMAL)
[2021-10-24 15:37] LABS: POLYCHROMASIA 1+
[2021-10-24 15:38] LABS: MICROCYTOSIS 1+
[2021-10-24 16:25] LABS: ALBUMIN 2.3 GM/DL (3.2-5.2); ALT/SGPT 42 U/L (12-78); BILIRUBIN,DIRECT 0.2 MG/DL (0.0-0.2); BILIRUBIN,TOTAL 0.8 MG/DL (0.2-1.0); BLOOD UREA NITROGEN 15 MG/DL (7-18); CALCIUM LEVEL 8.9 MG/DL (8.5-10.1); CARBON DIOXIDE LEVEL 22 MEQ/L (21-32); CHLORIDE LEVEL 106 MEQ/L (98-107); CREATININE FOR GFR 1.14 MG/DL (0.70-1.30); GLOMERULAR FILTRATION RATE > 60.0 (>60); GLUCOSE, FASTING 169 MG/DL (70-100); NT-PRO BNP 87 PG/ML (<125); POTASSIUM SERUM 5.2 MEQ/L (3.5-5.1); SODIUM LEVEL 138 MEQ/L (136-145); TOTAL PROTEIN 6.8 GM/DL (6.4-8.2)
[2021-10-24] MEDS ORDERED: PIPERACILLIN/TAZOBACTAM SOD 4.5 GM in D5W MINI-BAG PLUS 50 ML IV ONE (16:55)
[2021-10-24] MEDS ORDERED: VANCOMYCIN HCL 1,000 MG, VIAL MATE ADAPTER 1 EACH in NS 250 ML IV ONE (16:55)
[2021-10-24] MEDS ORDERED: ISOVUE-370 76% 100ML VIAL As Ordered ONE (16:58)
[2021-10-24] MEDS ORDERED: ACETAMINOPHEN TAB 650MG DOSE (2X325MG) PO PRN (18:30)
[2021-10-24] MEDS ORDERED: DEXTROSE 50% 50 ML SYRINGE IV PRN (18:55)
[2021-10-24] MEDS ORDERED: GLUCOSE 4GM CHEW TABLET PO PRN (18:55)
[2021-10-24] MEDS ORDERED: GLUCAGON INJ 1MG VIAL SC PRN (18:55)
[2021-10-24] MEDS ORDERED: POTA10TA67 PO (18:58)
[2021-10-24] MEDS ORDERED: HYDR-3713 PO (18:58)
[2021-10-24] MEDS ORDERED: METF500T13 PO (18:58)
[2021-10-24] MEDS ORDERED: LEVO750T13 PO (18:59)
[2021-10-24] MEDS ORDERED: HOME MED LIST COMPLETE! XX SCH (19:05)
[2021-10-24 19:21] LABS: INR 1.1; PROTHROMBIN TIME 14.6 SECONDS (12.7-14.5)
[2021-10-24 19:22] LABS: PARTIAL THROMBOPLASTIN TIME 38.8 SECONDS (25.9-37.0)
[2021-10-24] MEDS: HumaLOG INSULIN (NovoLOG) PER UNIT SC SCH ×2 (19:39→21:00)
[2021-10-24] MEDS ORDERED: hydrOXYzine 50 MG TAB PO PRN (19:45)
[2021-10-24] MEDS ORDERED: NORCO, ANEXSIA 5/325MG TABLET (HYDROcodone/ACETAMINOPHEN) PO PRN (19:45)
[2021-10-24] MEDS: AZITHROMYCIN INJ 500 MG, VIAL MATE ADAPTER 1 EACH in NS 250 ML IV SCH (20:00)
[2021-10-24 20:45] VITALS: BP 110/74
[2021-10-24] MEDS ORDERED: ENOXAPARIN 100MG/1ML SYRINGE (J1650 PER 10MG) SC SCH (21:00)
[2021-10-24] MEDS: POTASSIUM CHLORIDE 10MEQ SR TABLET PO SCH (21:00)
[2021-10-24] MEDS: METOPROLOL SUCC (TopROL XL) 100MG *XL* TAB PO SCH (21:38)
[2021-10-25] VITALS (9 sets, daily range): BP systolic 101–144; BP diastolic 56–80
[2021-10-25] MEDS: PIPERACILLIN/TAZOBACTAM SOD 4.5 GM in D5W MINI-BAG PLUS 100 ML IV SCH ×4 (01:23→18:35)
[2021-10-25 05:35] LABS: HEMATOCRIT 26.5 % (42.0-52.0); HEMOGLOBIN 7.9 g/dl (13.5-17.5); MEAN CORPUSCULAR HEMOGLOBIN 32.2 pg (27.0-33.0); MEAN CORPUSCULAR HGB CONC 29.8 g/dl (32.0-36.5); MEAN CORPUSCULAR VOLUME 108.2 fl (80.0-96.0); PLATELET COUNT, AUTOMATED 536 10^3/uL (150-450); RED BLOOD COUNT 2.45 10^6/uL (4.30-6.10); WHITE BLOOD COUNT 10.6 10^3/uL (4.0-10.0)
[2021-10-25 05:51] LABS: BLOOD UREA NITROGEN 12 MG/DL (7-18); CARBON DIOXIDE LEVEL 28 MEQ/L (21-32); CHLORIDE LEVEL 107 MEQ/L (98-107); CREATININE FOR GFR 1.09 MG/DL (0.70-1.30); GLOMERULAR FILTRATION RATE > 60.0 (>60); GLUCOSE, FASTING 98 MG/DL (70-100); MAGNESIUM LEVEL 2.2 MG/DL (1.8-2.4); POTASSIUM SERUM 4.1 MEQ/L (3.5-5.1); SODIUM LEVEL 139 MEQ/L (136-145)
[2021-10-25] MEDS: HumaLOG INSULIN (NovoLOG) PER UNIT SC SCH ×4 (07:23→20:25)
[2021-10-25] MEDS ORDERED: HEPARIN SOD (PORCINE) 5000UNITS/ML 1ML VIAL/SYRINGE IV PRN (08:15)
[2021-10-25] MEDS: PANTOPRAZOLE 40MG TAB (PROTONIX) PO SCH (08:18)
[2021-10-25] MEDS: POTASSIUM CHLORIDE 10MEQ SR TABLET PO SCH ×2 (08:19→20:24)
[2021-10-25] MEDS: diltiaZEM **CD** 180 MG CAP PO SCH (08:19)
[2021-10-25] MEDS ORDERED: DAPSONE 100 MG TAB PO SCH (09:00)
[2021-10-25] MEDS: HEPARIN DRIP 25,000 UNITS in IV 1 EA IV SCH (09:25)
[2021-10-25] MEDS: DAPSONE 100 MG TAB PO SCH (09:46)
[2021-10-25 16:01] LABS: HEMATOCRIT 29.8 % (42.0-52.0)
[2021-10-25] MEDS: MIRALAX *UNIT DOSE* 17GM PACKET PO SCH (20:24)
[2021-10-25] MEDS: AZITHROMYCIN INJ 500 MG, VIAL MATE ADAPTER 1 EACH in NS 250 ML IV SCH (20:25)
[2021-10-25] MEDS: METOPROLOL SUCC (TopROL XL) 100MG *XL* TAB PO SCH (20:32)
[2021-10-26] VITALS: BP 108/70
[2021-10-26] MEDS: HEPARIN DRIP 25,000 UNITS in IV 1 EA IV SCH (00:41)
[2021-10-26] MEDS: PIPERACILLIN/TAZOBACTAM SOD 4.5 GM in D5W MINI-BAG PLUS 100 ML IV SCH ×4 (00:43→18:17)
[2021-10-26 04:00] VITALS: BP 110/70
[2021-10-26 06:09] LABS: HEMATOCRIT 29.1 % (42.0-52.0); HEMOGLOBIN 8.8 g/dl (13.5-17.5); MEAN CORPUSCULAR HEMOGLOBIN 29.9 pg (27.0-33.0); MEAN CORPUSCULAR HGB CONC 30.2 g/dl (32.0-36.5); PLATELET COUNT, AUTOMATED 527 10^3/uL (150-450); RED BLOOD COUNT 2.94 10^6/uL (4.30-6.10); WHITE BLOOD COUNT 12.2 10^3/uL (4.0-10.0)
[2021-10-26 06:20] LABS: BLOOD UREA NITROGEN 11 MG/DL (7-18); CARBON DIOXIDE LEVEL 27 MEQ/L (21-32); CHLORIDE LEVEL 108 MEQ/L (98-107); CREATININE FOR GFR 1.09 MG/DL (0.70-1.30); GLOMERULAR FILTRATION RATE > 60.0 (>60); GLUCOSE, FASTING 92 MG/DL (70-100); POTASSIUM SERUM 4.1 MEQ/L (3.5-5.1); SODIUM LEVEL 139 MEQ/L (136-145)
[2021-10-26] MEDS: HumaLOG INSULIN (NovoLOG) PER UNIT SC SCH ×4 (07:30→21:00)
[2021-10-26 08:33] VITALS: BP 114/68
[2021-10-26] MEDS: PANTOPRAZOLE 40MG TAB (PROTONIX) PO SCH (08:38)
[2021-10-26] MEDS: diltiaZEM **CD** 180 MG CAP PO SCH (08:38)
[2021-10-26] MEDS: MIRALAX *UNIT DOSE* 17GM PACKET PO SCH ×2 (08:39→21:00)
[2021-10-26] MEDS: DAPSONE 100 MG TAB PO SCH (08:39)
[2021-10-26] MEDS: POTASSIUM CHLORIDE 10MEQ SR TABLET PO SCH ×2 (08:39→22:27)
[2021-10-26] MEDS: APIXABAN 5 MG TAB (ELIQUIS) PO SCH ×2 (10:01→22:26)
[2021-10-26 12:09] VITALS: BP 103/66
[2021-10-26 15:08] LABS: MYCOPLASMA PNEUMONIAE IgG 259 U/mL (0-99); MYCOPLASMA PNEUMONIAE IgM <770 U/mL (0-769)
[2021-10-26 16:42] VITALS: BP 102/62
[2021-10-26 20:22] VITALS: BP 117/77
[2021-10-26] MEDS: AZITHROMYCIN INJ 500 MG, VIAL MATE ADAPTER 1 EACH in NS 250 ML IV SCH (22:40)
[2021-10-26] MEDS: METOPROLOL SUCC (TopROL XL) 100MG *XL* TAB PO SCH (22:41)
[2021-10-27 00:20] VITALS: BP 111/63
[2021-10-27] MEDS: PIPERACILLIN/TAZOBACTAM SOD 4.5 GM in D5W MINI-BAG PLUS 100 ML IV SCH ×4 (00:51→18:06)
[2021-10-27 04:43] LABS: HEMATOCRIT 30.1 % (42.0-52.0); HEMOGLOBIN 8.8 g/dl (13.5-17.5); MEAN CORPUSCULAR HEMOGLOBIN 29.4 pg (27.0-33.0); MEAN CORPUSCULAR HGB CONC 29.2 g/dl (32.0-36.5); MEAN CORPUSCULAR VOLUME 100.7 fl (80.0-96.0); PLATELET COUNT, AUTOMATED 476 10^3/uL (150-450); RED BLOOD COUNT 2.99 10^6/uL (4.30-6.10); WHITE BLOOD COUNT 11.6 10^3/uL (4.0-10.0)
[2021-10-27 05:05] LABS: BLOOD UREA NITROGEN 13 MG/DL (7-18); CALCIUM LEVEL 8.8 MG/DL (8.5-10.1); CARBON DIOXIDE LEVEL 28 MEQ/L (21-32); CHLORIDE LEVEL 110 MEQ/L (98-107); CREATININE FOR GFR 1.04 MG/DL (0.70-1.30); GLOMERULAR FILTRATION RATE > 60.0 (>60); GLUCOSE, FASTING 95 MG/DL (70-100); POTASSIUM SERUM 4.2 MEQ/L (3.5-5.1); SODIUM LEVEL 140 MEQ/L (136-145)
[2021-10-27] MEDS: HumaLOG INSULIN (NovoLOG) PER UNIT SC SCH ×4 (07:30→19:53)
[2021-10-27 08:22] VITALS: BP 108/67
[2021-10-27] MEDS: MIRALAX *UNIT DOSE* 17GM PACKET PO SCH ×2 (08:23→19:49)
[2021-10-27] MEDS: PANTOPRAZOLE 40MG TAB (PROTONIX) PO SCH (08:24)
[2021-10-27] MEDS: DAPSONE 100 MG TAB PO SCH (08:24)
[2021-10-27] MEDS: diltiaZEM **CD** 180 MG CAP PO SCH (08:24)
[2021-10-27] MEDS: POTASSIUM CHLORIDE 10MEQ SR TABLET PO SCH ×2 (08:24→19:49)
[2021-10-27] MEDS: APIXABAN 5 MG TAB (ELIQUIS) PO SCH ×2 (08:24→19:48)
[2021-10-27] MEDS ORDERED: CEFD300C41 PO (09:20)
[2021-10-27] MEDS ORDERED: ELIQ5TAB PO (09:20)
[2021-10-27] MEDS ORDERED: AZIT500T5 PO (09:20)
[2021-10-27] MEDS ORDERED: MIRA1POW3 PO (09:20)
[2021-10-27 13:42] VITALS: BP 114/68
[2021-10-27 16:08] LABS: BODY FLUID CULTURE Not indicated. (.); LEGIONELLA ANTIGEN URINE Negative (Negative); ORGANISM ID Not indicated. (.); SPECIMEN SOURCE Urine (.); URINE STREP PNEUMONIAE ANTIGEN Negative (Negative)
[2021-10-27 17:20] VITALS: BP 120/78
[2021-10-27] MEDS: AZITHROMYCIN INJ 500 MG, VIAL MATE ADAPTER 1 EACH in NS 250 ML IV SCH (19:42)
[2021-10-27 19:48] VITALS: BP 120/78
[2021-10-27] MEDS: METOPROLOL SUCC (TopROL XL) 100MG *XL* TAB PO SCH (19:48)
[2021-10-27 20:07] VITALS: BP 114/70
[2021-10-29 15:07] LABS: BODY FLUID CULTURE Not indicated. (.); LEGIONELLA ANTIGEN URINE Negative (Negative); ORGANISM ID Not indicated. (.); SPECIMEN SOURCE Urine (.); URINE STREP PNEUMONIAE ANTIGEN Negative (Negative)
[2021-10-30 15:09] LABS: CHLAMYDIA PNEUMONIAE IgG <1:16 (Neg:<1:16); CHLAMYDIA PNEUMONIAE IgM <1:10 (Neg:<1:10)
== END 2021-10-27 20:32 | disposition home or self-care (01) | DRG 175 ==
LOC: M ED 13:43 → M ED INP 18:30 → M PCU 20:38
PROVIDERS: ADMIT Internal Medicine; ATTEND Internal Medicine
PROC: 30233N1 Transfusion of Nonautologous Red Blood Cells into Peripheral Vein, Percutaneous Approach (ICD-10-PCS; principal; 2021-10-25)
DX: I26.99 Other pulmonary embolism without acute cor pulmonale (principal); J96.21 Acute and chronic respiratory failure with hypoxia; J18.9 Pneumonia, unspecified organism; E24.8 Other Cushing's syndrome; I10 Essential (primary) hypertension; Z99.81 Dependence on supplemental oxygen; Z87.891 Personal history of nicotine dependence; E11.9 Type 2 diabetes mellitus without complications; Z79.899 Other long term (current) drug therapy; Z88.8 Allergy status to other drugs, medicaments and biological substances; D64.9 Anemia, unspecified

== ENCOUNTER → 2021-10-24 | Outpatient (CLI) | payer OTHER ==
[~2021-10-24] MED LIST changes: +AMLO1TAB25 PO; +DAPS10TA PO; +DILT1CAP46 PO; +DOXY-443 PO; +HYDR-3713 PO; +HYDR-3910 PO; +HYDR-4571 PO; +HYDR50TA70 PO; +JANU100T14 PO; +LEVO750T13 PO; +METF10004 PO; +METF500T13 PO; +METO1TAB33 PO; +PANT40TA29 PO; +POTA10CA32 PO; +POTA10TA67 PO; +RA M10TA PO; +SPIR-10 PO; +TRIA1CR80 TOP; +TRUL10IN SC
== END ==
LOC: M PLARAD 11:22
PROVIDERS: ATTEND Nurse Practitioner Family
DX: C7A.8 Other malignant neuroendocrine tumors (principal); R91.8 Other nonspecific abnormal finding of lung field

== ENCOUNTER 2022-01-26 19:16 | Emergency (ER) | payer OTHER ==
[~2022-01-26] VITALS: Ht 182.9 cm; Wt 84.4 kg
[~2022-01-26 19:16] MED LIST changes: +AZIT500T5 PO; +CEFD300C41 PO; +ELIQ5TAB PO; +HYDR-3713 PO; +MIRA1POW3 PO; +POTA10TA67 PO
[2022-01-26 19:17] VITALS: BP 158/84
== END 2022-01-26 20:14 | disposition left against medical advice (07) ==
LOC: M ED 19:16
DX: Z53.21 Procedure and treatment not carried out due to patient leaving prior to being seen by health care provider (principal)

== ENCOUNTER → 2022-06-06 | Outpatient (CLI) | payer BC, OTHER ==
[~2022-06-06] MED LIST changes: +LEVO1TAB40 PO; -LEVO750T13 PO
== END ==
LOC: M LABSMTC 09:15
PROVIDERS: ATTEND Family Medicine
DX: Z20.822 Contact with and (suspected) exposure to COVID-19 (principal)
CPT/HCPCS: 87635; C9803

== ENCOUNTER → 2022-07-19 | Outpatient (REF) | LOC: M PLAIMG 09:51 | PROVIDERS: ATTEND Internal Medicine | DX: R06.02 Shortness of breath (principal); Z12.2 Encounter for screening for malignant neoplasm of respiratory organs ==

== ENCOUNTER → 2022-11-16 | Outpatient (CLI) | payer OTHER ==
[~2022-11-16] MED LIST changes: +ISOVUE-370 76% 100ML VIAL As Ordered ONE; -POTA10CA32 PO; +POTA10CA33 PO
== END ==
LOC: M RAD 13:39
PROVIDERS: ATTEND Physician Assistant
DX: D3A.8 Other benign neuroendocrine tumors (principal)
CPT/HCPCS: 71260; Q9967

== ENCOUNTER → 2024-03-20 | Outpatient (CLI) | payer OTHER ==
[~2024-03-20] MED LIST changes: +CEFD1CAP9 PO; -CEFD300C41 PO; +DAPS100T22 PO; -DAPS10TA PO; +DICL100G10 TOP; -DICL1GEL3 TOP; -DILT1CAP46 PO; +DILT360C22 PO; +DOXY-323 PO; -DOXY-443 PO; -HYDR-3910 PO; +HYDR25TA87 PO; -ISOVUE-370 76% 100ML VIAL As Ordered ONE; -MIRA1POW3 PO; +MIRA33506 PO; -POTA10CA33 PO; +POTA10CA70 PO
== END ==
LOC: M SLEEP 20:00
PROVIDERS: ATTEND Nurse Practitioner Family
DX: R06.83 Snoring (principal)

== ENCOUNTER 2024-12-17 01:17 | Inpatient (IN) | payer OTHER ==
[~2024-12-17] VITALS: Ht 182.9 cm; Wt 95.3 kg
[~2024-12-17 01:17] MED LIST changes: -DOXY-323 PO; +DOXY-441 PO
[2024-12-17 02:36] LABS: BASO % 0.6 % (0.0-1.0); EOS # 0.2 10^3/uL (0.0-0.5); EOS % 3.4 % (0.0-3.0); HEMATOCRIT 40.3 % (42.0-52.0); HEMOGLOBIN 13.8 g/dl (13.5-17.5); LYMPH # 0.8 10^3/uL (1.5-5.0); LYMPH % 14.9 % (24.0-44.0); MEAN CORPUSCULAR HGB CONC 34.2 g/dl (32.0-36.5); MEAN CORPUSCULAR VOLUME 96.4 fl (80.0-96.0); MONO # 0.7 10^3/uL (0.0-0.8); MONO % 13.7 % (2.0-8.0); NEUTROPHILS # 3.5 10^3/uL (1.5-8.5); NEUTROPHILS % 66.4 % (36.0-66.0); PLATELET COUNT, AUTOMATED 226 10^3/uL (150-450); RED BLOOD COUNT 4.18 10^6/uL (4.30-6.10); WHITE BLOOD COUNT 5.2 10^3/uL (4.0-10.0)
[2024-12-17] MEDS: ACETAMINOPHEN *IV* 1,000 MG in IV 1 EA IV ONE (02:37)
[2024-12-17 02:53] LABS: LIPASE 32 U/L (12-53)
[2024-12-17 02:55] LABS: ALBUMIN 4.1 G/DL (3.2-5.2); ALKALINE PHOSPHATASE 128 U/L (40-129); ALT/SGPT 167 U/L (7.0-40); AST/SGOT 99 U/L (<34); BILIRUBIN,DIRECT 0.2 MG/DL (<0.4); BILIRUBIN,TOTAL 0.9 MG/DL (0.3-1.2); TOTAL PROTEIN 7.3 G/DL (5.7-8.2)
[2024-12-17] MEDS ORDERED: ISOVUE-370 76% 100ML VIAL As Ordered ONE (03:30)
[2024-12-17] MEDS ORDERED: METO1TAB32 PO (06:05)
[2024-12-17] MEDS ORDERED: ELIQ5TAB PO (06:05)
[2024-12-17] MEDS ORDERED: ACET-897 PO (06:07)
[2024-12-17] MEDS ORDERED: HOME MED LIST COMPLETE! XX SCH (06:15)
[2024-12-17] MEDS: NS (Normal Saline) 0.9% 1,000 ML IV SCH (06:24)
[2024-12-17 06:43] LABS: BLOOD UREA NITROGEN 16 MG/DL (9-23); CALCIUM LEVEL 9.1 MG/DL (8.5-10.1); CARBON DIOXIDE LEVEL 23 MMOL/L (20-31); CHLORIDE LEVEL 105 MMOL/L (98-107); CREATININE FOR GFR 1.15 MG/DL (0.70-1.30); GLOMERULAR FILTRATION RATE > 60.0 (>60); GLUCOSE, FASTING 102 MG/DL (60-100); POTASSIUM SERUM 4.8 MMOL/L (3.5-5.1); SODIUM LEVEL 139 MMOL/L (136-145)
[2024-12-17 09:11] VITALS: BP 120/81
[2024-12-17] MEDS: METOPROLOL SUCC *XL* 25MG TAB (TopROL *XL*) PO SCH (09:11)
[2024-12-17] MEDS ORDERED: HEPARIN SOD (PORCINE) 5000UNITS/ML 1ML VIAL/SYRINGE SC SCH ×2 (14:00→22:00)
[2024-12-17] MEDS ORDERED: GLUCOSE 4 GM CHEW PO PRN (14:50)
[2024-12-17] MEDS ORDERED: GLUCAGON INJ 1MG VIAL SC PRN (14:50)
[2024-12-17] MEDS ORDERED: DEXTROSE 50% 50ML SYRINGE IV PRN (14:50)
[2024-12-17 15:16] VITALS: BP 149/75; TEMP 97.3; O2SAT 97
[2024-12-17] MEDS: D5W/0.45% SODIUM CHLORIDE 1,000 ML IV SCH (19:08)
[2024-12-17 20:46] VITALS: BP 128/73; TEMP 97.7; O2SAT 97
[2024-12-17 23:18] VITALS: BP 117/86; TEMP 97.4; O2SAT 98
[2024-12-18] VITALS: O2SAT 93
== END 2024-12-17 23:23 | disposition short-term general hospital (02) | DRG 394 ==
LOC: M ED 01:17 → M ED INP 05:18 → M MSPAV 15:16
PROVIDERS: ADMIT Family Medicine; ATTEND Student in an Organized Health Care Education/Training Program
DX: K94.09 Other complications of colostomy (principal); C78.7 Secondary malignant neoplasm of liver and intrahepatic bile duct; C79.82 Secondary malignant neoplasm of genital organs; C19 Malignant neoplasm of rectosigmoid junction; E11.9 Type 2 diabetes mellitus without complications; R74.01 Elevation of levels of liver transaminase levels; Z86.711 Personal history of pulmonary embolism; Z79.01 Long term (current) use of anticoagulants; Z92.21 Personal history of antineoplastic chemotherapy; Z92.3 Personal history of irradiation; K21.9 Gastro-esophageal reflux disease without esophagitis; I10 Essential (primary) hypertension; D69.6 Thrombocytopenia, unspecified; Z87.891 Personal history of nicotine dependence; Z79.899 Other long term (current) drug therapy; Z88.8 Allergy status to other drugs, medicaments and biological substances